=== PATIENT | female | born 1950 | race Hispanic/Latino ===

== ENCOUNTER 2017-04-03 07:38 | Emergency (ER) | payer MEDICARE, BC ==
[2017-04-03] MEDS ORDERED: Ketorolac Tromethamine 60 MG/2 ML VIAL ONE (08:00)
== END 2017-04-03 08:23 | disposition home or self-care (01) ==
LOC: BURERS 07:38
DX: S76.912A Strain of unspecified muscles, fascia and tendons at thigh level, left thigh, initial encounter (principal); E11.9 Type 2 diabetes mellitus without complications; E78.5 Hyperlipidemia, unspecified; I10 Essential (primary) hypertension; X50.9XXA Other and unspecified overexertion or strenuous movements or postures, initial encounter
CPT/HCPCS: 96372; J1885

== ENCOUNTER 2022-01-02 17:07 | Emergency (ER) | payer OTHER, MEDICARE, BC ==
[2022-01-02] MEDS ORDERED: Ibuprofen 800 MG TAB ONE (17:50)
[2022-01-02] MEDS ORDERED: HYDROcodone/Acetaminophen 10/325 mg Tablet ONE (17:50)
[2022-01-02] MEDS ORDERED: AMOXicillin 250 MG CAP ONE (17:51)
== END 2022-01-02 19:02 | disposition home or self-care (01) ==
LOC: BURERS 17:07
DX: S61.253A Open bite of left middle finger without damage to nail, initial encounter (principal); S61.257A Open bite of left little finger without damage to nail, initial encounter; E11.9 Type 2 diabetes mellitus without complications; E78.5 Hyperlipidemia, unspecified; I10 Essential (primary) hypertension; W54.0XXA Bitten by dog, initial encounter
CPT/HCPCS: 99283